=== PATIENT | female | born 1985 | race African-American/Black ===

== ENCOUNTER 2018-12-16 21:24 | Inpatient (IN) ==
[2018-12-16] MEDS ORDERED: ONDANSETRON 4 MG/2 ML VIAL IV PRN (22:03)
[2018-12-16] MEDS ORDERED: BUTORPHANOL 2 MG/ML VIAL IV PRN (22:03)
[2018-12-16] MEDS ORDERED: OXYTOCIN/LR 20 UNIT/1,000 ML BAG IV SCH (23:00)
[2018-12-16 23:03] LABS: Basophils % 0.2 % (0.0-0.8); Eosinophils # 0.1 10*3/uL (0.0-0.87); Eosinophils % 0.6 % (0.00-10.9); Hematocrit 27.8 VOL% (35.7-47.0); Immature Granulocytes % 2.4 %; Immature Granulocytes Absolute 0.26 #; Lymphocytes # 2.3 10*3/uL (1.4-4.0); Lymphocytes % 20.9 % (21.3-54.2); Mean Corpuscular HGB Conc 28.1 GM/DL (32-36); Mean Corpuscular Volume 70.6 FL (87-102); Mean Platelet Volume 8.8 FL (9.6-12.0); Monocytes % 12.7 % (1.7-12.7); NRBC # 0.02 10*3/uL; Neutrophils % 63.2 % (38.7-73.9); Platelet Count 333 T/CUMM (130-400); Red Blood Count 3.94 MC/CUMM (3.8-5.5); Red Cell Distribution Width 17.4 % (9.3-17.3)
[2018-12-16 23:05] LABS: Alanine Aminotransferase 19 U/L (13-56); Alkaline Phosphatase 150 U/L (45-117); Aspartate Amino Transferase 33 U/L (0-37); Bilirubin,Total < 0.39 MG/DL (0.2-1.0); Blood Urea Nitrogen 8 MG/DL (7-18); Calcium 9.3 MG/DL (8.5-10.1); Estimated Glom Filtration Rate 146 ML/MIN; Glucose 95 MG/DL (74-106); Osmolality,Calculated 270.8 MOS/KG (273-304); Total Protein 7.6 G/DL (6.4-8.3)
[2018-12-16 23:06] LABS: Hemoglobin 7.8 GM/DL (12.0-16.0)
[2018-12-16] MEDS: LACTATED RINGERS 1,000 ML IV SCH (23:18)
[2018-12-16] MEDS: AMPICILLIN INJ 2,000 MG in SODIUM CHLORIDE 0.9% 100 ML IV SCH (23:21)
[2018-12-17] MEDS: AMPICILLIN INJ 2,000 MG in SODIUM CHLORIDE 0.9% 100 ML IV SCH ×2 (05:30→10:54)
[2018-12-17] MEDS: LACTATED RINGERS 1,000 ML IV SCH (10:57)
[2018-12-17] MEDS ORDERED: hydrOXYzine HCL 25 MG/1 ML VIAL IM PRN (11:33)
[2018-12-17] MEDS ORDERED: diphenhydrAMINE 50 MG/1 ML VIAL IV PRN ×2 (11:33)
[2018-12-17] MEDS ORDERED: FAMOTIDINE 20 MG/2 ML VIAL IV ONE (11:33)
[2018-12-17] MEDS ORDERED: ONDANSETRON 4 MG/2 ML VIAL IV ONE (11:33)
[2018-12-17] MEDS ORDERED: PROMETHAZINE 25 MG/1 ML VIAL IM ONE (11:33)
[2018-12-17] MEDS ORDERED: CITRIC ACID/SODIUM CITRATE 30 ML UDCUP PO ONE (11:33)
[2018-12-17] MEDS ORDERED: NALOXONE 0.4 MG/ML VIAL IV PRN (11:33)
[2018-12-17] MEDS ORDERED: ePHEDrine 50 MG/ML AMP IV PRN (11:33)
[2018-12-17] MEDS ORDERED: fentaNYL 2 MCG/ROPIV 0.2% EPID 100 ML EPIDURAL SCH (12:00)
[2018-12-17] MEDS ORDERED: ceFAZolin 2,000 MG in PREMIX 1 EACH IV ONE (13:31)
[2018-12-17] MEDS ORDERED: TRANEXAMIC ACID 1,000 MG/10 ML VIAL ONE (13:57)
[2018-12-17] MEDS ORDERED: miSOPROStoL 200 MCG TABLET ONE (13:57)
[2018-12-17] MEDS ORDERED: METHYLERGONOVINE 0.2 MG/1 ML AMP ONE (13:58)
[2018-12-17] MEDS ORDERED: CARBOPROST TROMETHAMINE 250 MCG/ML AMP IM ONE (13:58)
[2018-12-17] MEDS ORDERED: DEXAMETHASONE 4 MG/1 ML VIAL ONE (14:08)
[2018-12-17] MEDS ORDERED: BUPIVACAINE 0.25% 50 ML VIAL ONE (14:08)
[2018-12-17] MEDS ORDERED: EPINEPHrine 1 MG/ML VIAL ONE (14:08)
[2018-12-17] MEDS ORDERED: SODIUM BICARBONATE 10 MEQ/10 ML SYRINGE IV ONE (14:59)
[2018-12-17] MEDS ORDERED: LIDOCAINE MPF 2% /EPI 20 ML VIAL ONE (14:59)
[2018-12-17] MEDS ORDERED: ACETAMINOPHEN 325 MG TABLET PO PRN (15:44)
[2018-12-17] MEDS ORDERED: OXYTOCIN/LR 20 UNIT/1,000 ML BAG IV ONE (15:44)
[2018-12-17] MEDS ORDERED: ONDANSETRON 4 MG/2 ML VIAL IV PRN (15:44)
[2018-12-17] MEDS ORDERED: RHO(D) IMMUNE GLOBULIN 300 MCG SYRINGE IM ONE (15:44)
[2018-12-17] MEDS ORDERED: SIMETHICONE CHEW 80 MG TABLET PO PRN (15:44)
[2018-12-17] MEDS ORDERED: PHENYLEPHRINE 1 MG/10 ML SYRINGE IV ONE (15:53)
[2018-12-17] MEDS ORDERED: MORPHINE 10 MG/10 ML VIAL ONE (15:54)
[2018-12-17] MEDS ORDERED: LACTATED RINGERS 1,000 ML IV SCH (16:00)
[2018-12-17] MEDS: IBUPROFEN 800 MG TABLET PO PRN (19:30)
[2018-12-17] MEDS ORDERED: ceFAZolin 1,000 MG in SYRINGE 1 EACH IV SCH (22:00)
[2018-12-18 06:07] LABS: Basophils % 0.1 % (0.0-0.8); Eosinophils % 0.1 % (0.00-10.9); Hematocrit 20.5 VOL% (35.7-47.0); Immature Granulocytes % 0.8 %; Immature Granulocytes Absolute 0.09 #; Lymphocytes # 1.8 10*3/uL (1.4-4.0); Mean Corpuscular HGB Conc 28.3 GM/DL (32-36); Mean Corpuscular Volume 69.7 FL (87-102); Mean Platelet Volume 9.2 FL (9.6-12.0); Monocytes % 10.6 % (1.7-12.7); Neutrophils % 72.4 % (38.7-73.9); Platelet Count 252 T/CUMM (130-400); Red Blood Count 2.94 MC/CUMM (3.8-5.5); Red Cell Distribution Width 17.4 % (9.3-17.3); White Blood Count 11.3 T/CUMM (4-12)
[2018-12-18 06:14] LABS: Hemoglobin 5.8 GM/DL (12.0-16.0)
[2018-12-18] MEDS ORDERED: SODIUM CHLORIDE 0.9% 1,000 ML IV PRN ×2 (06:21→07:50)
[2018-12-18 06:33] LABS: Anisocytosis 1+; Hypochromasia 1+; Ovalocytes 1+; Platelet Estimate Normal
[2018-12-18] MEDS ORDERED: ceFAZolin 1,000 MG in SYRINGE 1 EACH IV SCH (07:30)
[2018-12-18] MEDS: DOCUSATE SODIUM 100 MG CAPSULE PO SCH ×2 (09:56→22:06)
[2018-12-18] MEDS: MULTIVITAMIN (PRENATAL) TABLET PO SCH (09:56)
[2018-12-18] MEDS: IBUPROFEN 800 MG TABLET PO PRN ×2 (12:33→22:06)
[2018-12-18] MEDS: MAGNESIUM HYDROXIDE SUSP 30 ML UDCUP PO PRN (22:06)
[2018-12-19 05:44] LABS: Basophils % 0.2 % (0.0-0.8); Eosinophils % 0.2 % (0.00-10.9); Hematocrit 29.3 VOL% (35.7-47.0); Hemoglobin 8.6 GM/DL (12.0-16.0); Immature Granulocytes % 0.8 %; Immature Granulocytes Absolute 0.11 #; Lymphocytes # 2.2 10*3/uL (1.4-4.0); Lymphocytes % 16.4 % (21.3-54.2); Mean Corpuscular HGB Conc 29.4 GM/DL (32-36); Mean Corpuscular Volume 74.6 FL (87-102); Mean Platelet Volume 8.8 FL (9.6-12.0); Monocytes % 11.9 % (1.7-12.7); NRBC # 0.02 10*3/uL; Neutrophils % 70.5 % (38.7-73.9); Platelet Count 228 T/CUMM (130-400); Red Blood Count 3.93 MC/CUMM (3.8-5.5); Red Cell Distribution Width 18.9 % (9.3-17.3); White Blood Count 13.3 T/CUMM (4-12)
[2018-12-19] MEDS: IBUPROFEN 800 MG TABLET PO PRN ×2 (08:04→18:14)
[2018-12-19] MEDS: DOCUSATE SODIUM 100 MG CAPSULE PO SCH ×2 (08:04→21:00)
[2018-12-19] MEDS: MULTIVITAMIN (PRENATAL) TABLET PO SCH (08:04)
[2018-12-19] MEDS: FERROUS SULFATE 325 MG TABLET PO SCH (21:00)
[2018-12-19] MEDS: MAGNESIUM HYDROXIDE SUSP 30 ML UDCUP PO PRN (21:00)
[2018-12-20 07:03] VITALS: BP 128/85
[2018-12-20] MEDS: DOCUSATE SODIUM 100 MG CAPSULE PO SCH (08:40)
[2018-12-20] MEDS: FERROUS SULFATE 325 MG TABLET PO SCH (08:40)
[2018-12-20] MEDS: MULTIVITAMIN (PRENATAL) TABLET PO SCH (08:41)
[2018-12-20] MEDS: IBUPROFEN 800 MG TABLET PO PRN (15:11)
== END 2018-12-20 17:00 | disposition home or self-care (01) ==
LOC: N.LD 21:24 → N.OB 12-17 22:02
PROVIDERS: ADMIT Obstetrics & Gynecology; ATTEND Obstetrics & Gynecology

== ENCOUNTER 2019-12-08 00:33 | Inpatient (IN) ==
[2019-12-08] MEDS ORDERED: MEPERIDINE 50 MG/1 ML VIAL IM PRN (01:28)
[2019-12-08] MEDS ORDERED: BUTORPHANOL 2 MG/ML VIAL IV PRN (01:28)
[2019-12-08] MEDS ORDERED: ONDANSETRON 4 MG/2 ML VIAL IV PRN ×2 (01:28→20:51)
[2019-12-08] MEDS ORDERED: OXYTOCIN/LR 20 UNIT/1,000 ML BAG IV SCH (01:30)
[2019-12-08 02:00] LABS: Mean Corpuscular HGB Conc 27.2 GM/DL (32-36); Monocytes % 11.4 % (1.7-12.7); Platelet Count 407 T/CUMM (130-400); Red Cell Distribution Width 18.8 % (9.3-17.3)
[2019-12-08] MEDS ORDERED: ceFAZolin 2,000 MG in PREMIX 1 EACH IV ONE (02:00)
[2019-12-08] MEDS: LACTATED RINGERS 1,000 ML IV SCH ×2 (02:10→04:50)
[2019-12-08 02:23] LABS: Basophils % 0.3 % (0.0-0.8); Eosinophils # 0.1 10*3/uL (0.0-0.87); Eosinophils % 0.5 % (0.00-10.9); Hematocrit 30.2 VOL% (35.7-47.0); Immature Granulocytes % 1.6 %; Immature Granulocytes Absolute 0.15 #; Lymphocytes # 2.2 10*3/uL (1.4-4.0); Lymphocytes % 24.1 % (21.3-54.2); Mean Corpuscular Volume 68.2 FL (87-102); Mean Platelet Volume 8.9 FL (9.6-12.0); NRBC # 0.08 10*3/uL; Neutrophils % 62.1 % (38.7-73.9); Red Blood Count 4.43 MC/CUMM (3.8-5.5); White Blood Count 9.3 T/CUMM (4-12)
[2019-12-08 02:24] LABS: Hemoglobin 8.2 GM/DL (12.0-16.0)
[2019-12-08 04:30] LABS: Platelet Estimate Adequate
[2019-12-08 04:31] LABS: Hypochromasia 1+; Microcytosis 1+
[2019-12-08] MEDS ORDERED: ceFAZolin 1,000 MG in SYRINGE 1 EACH IV SCH (06:00)
[2019-12-08] MEDS: AMPICILLIN INJ 1,000 MG in SODIUM CHLORIDE 0.9% 100 ML IV SCH ×4 (06:21→17:54)
[2019-12-08] MEDS ORDERED: NALOXONE 0.4 MG/ML VIAL IV PRN (07:23)
[2019-12-08] MEDS ORDERED: hydrOXYzine HCL 25 MG/1 ML VIAL IM PRN (07:23)
[2019-12-08] MEDS ORDERED: ePHEDrine 50 MG/ML VIAL IV PRN (07:23)
[2019-12-08] MEDS ORDERED: LACTATED RINGERS 1,000 ML IV ONE (07:23)
[2019-12-08] MEDS ORDERED: diphenhydrAMINE 50 MG/1 ML VIAL IV PRN ×2 (07:23)
[2019-12-08] MEDS ORDERED: PROMETHAZINE 25 MG/1 ML VIAL IM ONE (07:23)
[2019-12-08] MEDS ORDERED: ONDANSETRON 4 MG/2 ML VIAL IV ONE (07:23)
[2019-12-08] MEDS ORDERED: CITRIC ACID/SODIUM CITRATE 30 ML UDCUP PO ONE ×2 (07:23→07:34)
[2019-12-08] MEDS ORDERED: FAMOTIDINE 20 MG/2 ML VIAL IV ONE (07:23)
[2019-12-08] MEDS: fentaNYL 2 MCG/ROPIV 0.2% EPID 100 ML EPIDURAL SCH ×2 (08:22→16:23)
[2019-12-08 10:05] LABS: Bilirubin,Urine Negative (Negative); Blood, Urine Negative (Negative); Glucose,Urine (UA) Negative (Negative); Ketones,Urine 20 mg/dL (Negative); Mucus,Urine Occasional /LPF (Occasional); Nitrite,Urine Negative (Negative); Protein,Urine 30 MG/DL; RBC,Urine 2 /HPF (0-4); Squamous Epithelial Cell,Urine Occasional /HPF (0-10); Urine Appearance CLEAR (Clear); Urine Color Yellow (Yellow); Urine Urobilinogen < 2.0 EU/DL (0.2-1.0); WBC,Urine 1 /HPF (0-6)
[2019-12-08] MEDS ORDERED: OXYTOCIN/LR 20 UNIT/1,000 ML BAG IV ONE ×2 (17:37→20:51)
[2019-12-08] MEDS ORDERED: TRANEXAMIC ACID 1,000 MG/10 ML VIAL ONE (17:37)
[2019-12-08] MEDS ORDERED: miSOPROStoL 200 MCG TABLET ONE (17:37)
[2019-12-08] MEDS ORDERED: METHYLERGONOVINE 0.2 MG/1 ML AMP ONE (17:38)
[2019-12-08] MEDS ORDERED: CARBOPROST TROMETHAMINE 250 MCG/ML AMP IM ONE (17:38)
[2019-12-08] MEDS ORDERED: LIDOCAINE 1% 50 ML VIAL ONE (17:42)
[2019-12-08] MEDS ORDERED: SODIUM CHLORIDE 0.9% 0 ML IV ONE (17:46)
[2019-12-08] MEDS ORDERED: RHO(D) IMMUNE GLOBULIN 300 MCG SYRINGE IM ONE (20:51)
[2019-12-08] MEDS ORDERED: MEASLES/MUMPS/RUBELLA VACCINE 0.5 ML VIAL SUBCUT ONE (20:51)
[2019-12-08] MEDS ORDERED: WITCH HAZEL PADS 100/JAR TOP PRN (20:51)
[2019-12-08] MEDS ORDERED: BENZOCAINE 20%/MENTHOL 0.5% SPRAY 56 GM CAN TOP PRN (20:51)
[2019-12-08] MEDS ORDERED: BISACODYL 10 MG SUPP RECTAL PRN (20:51)
[2019-12-08] MEDS ORDERED: ACETAMINOPHEN 325 MG TABLET PO PRN (20:51)
[2019-12-08] MEDS ORDERED: DIPH/TET/ACEL PERT BOOSTER VACCINE 0.5 ML VIAL IM ONE (20:51)
[2019-12-08] MEDS ORDERED: LANOLIN 50% CREAM 0.3 OZ TUBE TOP PRN (20:51)
[2019-12-08] MEDS ORDERED: HYDROCORTISONE 2.5% RECTAL CREAM 30 GM TUBE TOP PRN (20:51)
[2019-12-08] MEDS ORDERED: oxyCODONE/ACETAMINOPHEN 5-325 MG TABLET PO PRN ×2 (20:51)
[2019-12-08 21:06] LABS: Cord Arterial Blood HCO3 19.6 MMOL/L
[2019-12-08 21:10] LABS: Cord Venous Blood PCO2 34.5 MMHG; Cord Venous Blood PO2 29.2
[2019-12-09] MEDS: DOCUSATE SODIUM 100 MG CAPSULE PO SCH ×3 (00:24→20:50)
[2019-12-09] MEDS: IBUPROFEN 800 MG TABLET PO PRN ×3 (00:24→20:50)
[2019-12-09] MEDS ORDERED: oxyCODONE/ACETAMINOPHEN 5-325 MG TABLET PO PRN (04:27)
[2019-12-09 06:08] LABS: Basophils % 0.1 % (0.0-0.8); Eosinophils % 0.1 % (0.00-10.9); Hematocrit 21.1 VOL% (35.7-47.0); Immature Granulocytes Absolute 0.15 #; Lymphocytes # 1.7 10*3/uL (1.4-4.0); Mean Corpuscular HGB Conc 28.9 GM/DL (32-36); Mean Corpuscular Volume 66.1 FL (87-102); Mean Platelet Volume 8.2 FL (9.6-12.0); NRBC # 0.05 10*3/uL; Neutrophils % 78.8 % (38.7-73.9); Platelet Count 273 T/CUMM (130-400); Red Blood Count 3.19 MC/CUMM (3.8-5.5); Red Cell Distribution Width 18.6 % (9.3-17.3); White Blood Count 15.7 T/CUMM (4-12)
[2019-12-09 06:26] LABS: Hemoglobin 6.1 GM/DL (12.0-16.0)
[2019-12-09] MEDS ORDERED: SODIUM CHLORIDE 0.9% 1,000 ML IV PRN (06:36)
[2019-12-09 06:58] LABS: Anisocytosis 2+; Ovalocytes Few; Platelet Estimate Normal; Poikilocytosis 1+; Polychromasia Slight
[2019-12-09 06:59] LABS: Hypochromasia Slight
[2019-12-09] MEDS: FERROUS SULFATE 325 MG TABLET PO SCH ×3 (08:01→20:50)
[2019-12-09 16:05] LABS: Hematocrit 27.3 VOL% (35.7-47.0); Hemoglobin 8.2 GM/DL (12.0-16.0)
[2019-12-10 07:41] VITALS: BP 108/53
[2019-12-10] MEDS: FERROUS SULFATE 325 MG TABLET PO SCH (08:48)
[2019-12-10] MEDS: DOCUSATE SODIUM 100 MG CAPSULE PO SCH (08:48)
[2019-12-10] MEDS: IBUPROFEN 800 MG TABLET PO PRN (08:48)
== END 2019-12-10 11:45 | disposition home or self-care (01) | DRG 807 ==
LOC: N.LDOUT 00:33 → N.LD 00:35 → N.OB 12-09
PROVIDERS: ADMIT Obstetrics & Gynecology; ATTEND Obstetrics & Gynecology